=== PATIENT | female | born 1980 | race Caucasian/White ===

== ENCOUNTER 2016-10-22 19:19 | Observation (INO) | payer OTHER ==
[~2016-10-22] VITALS: Ht 157.5 cm; Wt 94.2 kg
[~2016-10-22 19:19] MED LIST: ADVAIR HFA120 INHALA IH; ALEVE220 MG PO; DELTASONE20 M1 PO; FLONASE16 G1 BOTH NARES; INDOCIN25 MG PO; LEVAQUIN500 MG PO; MAGNESIUM400 M1 PO; PREDNISONE20 MG PO; PRILOSEC40 MG PO; VENTOLIN HFA18 GM; VENTOLIN HFA18 GM IH; WOMEN'S DAILY1 EAC1 PO; ZYRTEC5 MG PO
[2016-10-22 19:47] LABS: HEMATOCRIT 25.2 % (36.0-46.0); MCH 24.8 PG (29.0-34.0); MCHC 32.1 G/DL (30.0-36.0); MCV 77.3 FL (83-99); MEAN PLAT.VOLUME 8.5 uM^3 (9.5-12.4); PLATELET COUNT 341 K/uL (156-360); RBC DIS.WIDTH-CV 16.2 % (11.8-14.6); RBC DIS.WIDTH-SD 45.8 % (39-53); RED BLOOD COUNT 3.26 M/uL (3.80-5.20); WHITE BLOOD COUNT 7.8 K/uL (4.1-10.2)
[2016-10-22 19:59] LABS: CHLORIDE 107 mEq/L (99-109); POTASSIUM 4.3 mEq/L (3.7-5.4); SODIUM 138 mEq/L (136-147)
[2016-10-22 20:00] LABS: GLUCOSE 102 mg/dL (70-99)
[2016-10-22 20:02] LABS: ANION GAP 8 MEQ/L (2-14)
[2016-10-22 20:04] LABS: GFR ESTIMATE (CALCULATED) > 59 mL/min/
[2016-10-22 20:05] LABS: UREA NITROGEN (BUN) 13 mg/dL (9-23)
[2016-10-22 20:08] LABS: TROP-I INTERPRETATION NEGATIVE; TROPONIN-I < 0.01 ng/mL (0.0-0.30)
[2016-10-22 20:43] LABS: Estimated Average Glucose 114 mg/dL (70-123); HEMOGLOBIN A1c (GLYCOHEMOGLOB) 5.6 % HGB (Below 5.7)
[2016-10-22 20:44] LABS: QUANTITATIVE HCG < 4.0 MIU/ML
[2016-10-22] MEDS ORDERED: ZYRTEC10 M3 PO (21:14)
[2016-10-22] MEDS ORDERED: FLONASE16 G1 BOTH NARES (21:15)
[2016-10-22] MEDS ORDERED: OMEPRAZOLE40 M1 PO ×2 (21:15)
[2016-10-22] MEDS ORDERED: ALEVE220 MG PO (21:16)
[2016-10-22] MEDS ORDERED: VITAMIN D31000 UNIT PO (21:16)
[2016-10-22] MEDS ORDERED: WOMEN'S DAILY1 EAC2 PO (21:16)
[2016-10-22 21:40] VITALS: BP 132/82
[2016-10-22 22:06] VITALS: BP 126/76
[2016-10-22 22:49] VITALS: BP 127/79
[2016-10-22 23:35] VITALS: BP 121/75
[2016-10-23 04:58] VITALS: BP 112/54
[2016-10-23 06:42] LABS: HEMATOCRIT 26.9 % (36.0-46.0); MCH 26.5 PG (29.0-34.0); MCHC 33.5 G/DL (30.0-36.0); MCV 79.4 FL (83-99); MEAN PLAT.VOLUME 8.7 uM^3 (9.5-12.4); PLATELET COUNT 287 K/uL (156-360); RBC DIS.WIDTH-CV 16.5 % (11.8-14.6); RED BLOOD COUNT 3.39 M/uL (3.80-5.20); WHITE BLOOD COUNT 5.6 K/uL (4.1-10.2)
[2016-10-23 06:59] LABS: ANION GAP 6 MEQ/L (2-14); CHLORIDE 108 MEQ/L (99-109); GFR ESTIMATE (CALCULATED) > 59 mL/min/; GLUCOSE 93 mg/dL (70-99); SAMPLE HEMOLYSIS CHECK 0; SAMPLE ICTERIC CHECK 0; SAMPLE LIPEMIA CHECK 0; SODIUM 138 MEQ/L (136-147); UREA NITROGEN (BUN) 11 mg/dL (9-23)
[2016-10-23 09:40] VITALS: BP 119/77
[2016-10-23 11:32] VITALS: BP 117/71
[2016-10-23 15:49] VITALS: BP 122/72
[2016-10-23 19:00] VITALS: BP 134/79
[2016-10-24 00:04] VITALS: BP 104/60
[2016-10-24 04:06] VITALS: BP 92/55
[2016-10-24 08:02] VITALS: BP 102/61
[2016-10-24] MEDS ORDERED: IRON325 MG PO (13:58)
[2016-10-24 14:05] LABS: IRON 54 MCG/DL (35-150)
[2016-10-24 14:23] LABS: FERRITIN 5 NG/ML (10-291)
[2016-10-24 15:30] VITALS: BP 105/59
== END 2016-10-24 16:16 | disposition home or self-care (01) ==
LOC: EME 19:19 → EDOF 21:54 → 5WEST 21:54
PROVIDERS: Hospitalist
DX: D50.9 Iron deficiency anemia, unspecified (principal); J45.909 Unspecified asthma, uncomplicated; R10.13 Epigastric pain; K29.70 Gastritis, unspecified, without bleeding; R19.5 Other fecal abnormalities; J30.9 Allergic rhinitis, unspecified; Z82.49 Family history of ischemic heart disease and other diseases of the circulatory system
CPT/HCPCS: 71020; 80048; 82728; 83036; 83540; 84484; 84702; 85027; 86900; 86901; 86920; 88305; 88342 TC; 93005; 99281; 99285; C9113; G0378; J2250; J3010; J7030; P9016